=== PATIENT | male | born 1955 | race Caucasian/White ===

== ENCOUNTER 2023-08-02 08:54 | Outpatient (CLI) | payer MEDICARE, OTHER | END 2023-08-02 08:55 | disposition home or self-care (01) | LOC: CSHCP 08:54 | PROVIDERS: ATTEND Radiology Radiation Oncology | DX: C34.11 Malignant neoplasm of upper lobe, right bronchus or lung (principal); J44.9 Chronic obstructive pulmonary disease, unspecified; R94.2 Abnormal results of pulmonary function studies | CPT/HCPCS: 94060; 94726; 94729; 94760 ==

== ENCOUNTER 2024-07-16 10:25 | Outpatient (CLI) | payer MEDICARE, OTHER | END 2024-07-16 10:26 | disposition home or self-care (01) | LOC: CSHCP 10:25 | PROVIDERS: ATTEND Student in an Organized Health Care Education/Training Program | DX: C34.90 Malignant neoplasm of unspecified part of unspecified bronchus or lung (principal); J44.9 Chronic obstructive pulmonary disease, unspecified; E03.2 Hypothyroidism due to medicaments and other exogenous substances | CPT/HCPCS: 80053; 84439; 84443; 85025; 94060; 94726; 94729; 94760 ==